=== PATIENT | male | born 1970 ===

== ENCOUNTER 2024-01-11 22:26 | Emergency (ER) | payer SELFPAY ==
[2024-01-11] MEDS: metFORMIN 500 MG Tab PO STA (22:48)
[2024-01-11] MEDS: Rosuvastatin 10 MG Tab PO ONE (22:48)
[2024-01-11] MEDS: Lisinopril 10 MG Tab PO ONE (22:49)
== END 2024-01-11 22:54 ==
LOC: MW.ED 22:26
DX: I10 Essential (primary) hypertension (principal); Z02.89 Encounter for other administrative examinations; Z79.84 Long term (current) use of oral hypoglycemic drugs; Z79.899 Other long term (current) drug therapy; Z75.8 Other problems related to medical facilities and other health care
CPT/HCPCS: 99283; A9270-GY